=== PATIENT | female | born 1985 | race Caucasian/White ===

== ENCOUNTER 2016-10-25 01:15 | Emergency (ER) | payer SELFPAY ==
[~2016-10-25] VITALS: Ht 165.1 cm; Wt 65.3 kg
[2016-10-25] MEDS ORDERED: MOTRIN800 MG PO (04:13)
[2016-10-25 04:25] VITALS: BP 102/65
== END 2016-10-25 04:26 | disposition home or self-care (01) ==
LOC: EME 01:15
DX: S93.401A Sprain of unspecified ligament of right ankle, initial encounter (principal); S93.601A Unspecified sprain of right foot, initial encounter; X50.1XXA Overexertion from prolonged static or awkward postures, initial encounter; S90.112A Contusion of left great toe without damage to nail, initial encounter; W10.9XXA Fall (on) (from) unspecified stairs and steps, initial encounter; R55 Syncope and collapse
CPT/HCPCS: 73610; 73630; 99281; 99283